=== PATIENT | male | born 1965 | race Caucasian/White ===

== ENCOUNTER 2018-10-06 17:56 | Emergency (ER) | payer MEDICAID ==
[~2018-10-06] VITALS: Ht 170.2 cm; Wt 89.3 kg
[2018-10-06 18:13] VITALS: BP 112/72
[2018-10-06] MEDS ORDERED: IBUPROFEN 800 MG TABLET ONE (18:47)
[2018-10-06] MEDS ORDERED: hydrOXyzine 50MG TABLET ONE (18:47)
[2018-10-06] MEDS ORDERED: CLINDAMYCIN 300 MG CAPSULE ONE (18:47)
[2018-10-06] MEDS ORDERED: IBUPROFEN 800 MG TABLET PO ONE (19:00)
[2018-10-06] MEDS ORDERED: CLINDAMYCIN 300 MG CAPSULE PO ONE (19:00)
--- NOTE | 2018-10-06 19:23 | NUR ---
D/C INSTRUCTIONS, MEDS & F/U APPT RV'WD WITH PT, HE VERBALIZES UNDERSTANDING. RX GIVEN X4. PT AMBULATED OUT OF ED WITHOUT DIFFICULTY.
== END 2018-10-06 19:26 | disposition home or self-care (01) ==
LOC: ED 19:23
DX: K02.9 Dental caries, unspecified (principal); L01.01 Non-bullous impetigo; S40.862A Insect bite (nonvenomous) of left upper arm, initial encounter; S40.861A Insect bite (nonvenomous) of right upper arm, initial encounter; S20.469A Insect bite (nonvenomous) of unspecified back wall of thorax, initial encounter; F17.200 Nicotine dependence, unspecified, uncomplicated; W57.XXXA Bitten or stung by nonvenomous insect and other nonvenomous arthropods, initial encounter; Y93.89 Activity, other specified; Y92.89 Other specified places as the place of occurrence of the external cause; Y99.8 Other external cause status
CPT/HCPCS: 99284; Q0177